=== PATIENT | female | born 1970 | race Caucasian/White ===

== ENCOUNTER → 2022-11-03 14:29 | Outpatient (BNVA) | payer OTHER, SELFPAY | PROVIDERS: PCP Family Medicine; Visit Provider Psychiatry & Neurology Neurology | DX: D32.9 Benign neoplasm of meninges, unspecified (principal) ==

== ENCOUNTER 2023-01-14 07:18 | Outpatient (REF) | payer OTHER, SELFPAY ==
--- NOTE | ~2023-01-14 | MR_ITS ---
EXAMINATION: MR BRAIN WITHOUT AND WITH CONTRAST CLINICAL INFORMATION: 52-year-old with a 12 mm nodule on the left side of the falx noted on outside CT angiography of the head performed at [facility] on 06/17/2021. COMPARISON: 06/17/2021 CT angiogram brain. TECHNIQUE: Multiplanar, multisequence MRI of the brain was obtained before and after the intravenous administration of 5.5 mL Gadavist. FINDINGS: Brain Volume: Within normal limits within the limitations of qualitative assessment. Structural: No malformations. Brain and Meninges: DWI sequence demonstrates no restricted diffusion to suggest acute or subacute cerebral ischemia. Note is made of a 1.3 x 1.3 x 1.0 cm smoothly marginated, extra-axial enhancing mass along the left side of the anterior falx cerebri with a small dural tail, which is isointense on T1 and T2-weighted imaging consistent with a meningioma. The mass is stable in size when compared to the previous study within the limitations of the comparison. There is mild indentation of the mesial aspect of the left superior frontal gyrus related to this with no adjacent brain edema. The remainder of the brain is normal in morphology and signal intensity. Gradient refocused imaging demonstrates no abnormal susceptibility-weighted signal loss to suggest hemorrhage, hemosiderin staining or abnormal mineralization. No other enhancing mass lesions, pathologic intracranial enhancement, space-occupying process, extra-axial fluid collection or mass effect is identified. Ventricles and Subarachnoid Spaces: The ventricular system and subarachnoid spaces are within normal range; there is no hydrocephalus. Orbital Structures: The visualized orbital structures are grossly unremarkable within the limitations of the study. Vascular: Signal voids are noted in the visualized major intracranial vessels. Osseous Structures, Sinuses/Mastoids, Extracranial Soft Tissues: Small bilateral mastoid effusions are noted which are nonspecific findings. There is nasal septal deviation to the right with some mucosal thickening or fluid in the posterior left ethmoid complex. Visualized extracranial soft tissue structures appear grossly within normal limits. Bone marrow signal intensity appears within normal limits. MR/MR head/brain wo/w con IMPRESSION: 1. A 1.3 cm probable meningioma along the anterior falx cerebri on the left as detailed above. On retrospective review of the previous study, this is most likely unchanged in size. Follow up as per clinical indications. 2. Otherwise normal MRI of the brain without and with contrast. 3. Nonspecific mild bilateral mastoid effusions and some retained secretions or mucosal thickening in the left ethmoid complex.
== END 2023-01-14 07:19 | disposition home or self-care (01) ==
LOC: HO.MRI 07:18
PROVIDERS: PCP Family Medicine; Visit Provider Psychiatry & Neurology Neurology
DX: D32.9 Benign neoplasm of meninges, unspecified (principal)
CPT/HCPCS: 70553; A9585